=== PATIENT | female | born 1980 | race Caucasian/White ===

== ENCOUNTER 2016-11-06 09:24 | Emergency (ER) | payer OTHER ==
[~2016-11-06] VITALS: Ht 166.4 cm; Wt 61.9 kg
[~2016-11-06 09:24] MED LIST: AMOX875T PO; ASTN; VALA1TAB PO; [UNRECOGNIZED DRUG - CODE] PO
[2016-11-06 09:27] VITALS: TEMP 36.8; Ht 166.4 cm; Wt 61.9 kg
[2016-11-06] MEDS ORDERED: SODIUM CHLORIDE 0.9% 1000ML 1,000 ML IV STA (09:42)
[2016-11-06] MEDS ORDERED: METOCLOPRAMIDE HCL INJ 5 MG/ML 2 ML VIAL IV STA (09:42)
[2016-11-06 09:54] LABS: BASO % 0.4 %; BASO ABS # 0.03 K/uL (0-0.2); COMPLETE YES; EOS % 4.2 %; HEMATOCRIT 42.5 % (37-47); IG% 0.1 %; LYMPH % 27.7 %; LYMPH ABS # 1.97 K/uL (1.2-3.4); MEAN CORPUSCULAR HEMOGLOBIN 29.2 pg (25-34); MEAN CORPUSCULAR HGB CONC 33.2 g/dl (32-36); MEAN PLATELET VOLUME 12.8 fL (7.4-10.4); MONO % 8.9 %; NEUT % 58.7 %; PLATELET COUNT 186 K/uL (130-400); RED BLOOD COUNT 4.83 M/uL (4.2-5.4)
[2016-11-06 10:02] LABS: URINE APPEARANCE CLEAR (CLEAR); URINE BILIRUBIN NEG (NEG); URINE COLOR YELLOW; URINE NITRITE NEG (NEG); URINE PH 7.5 (4.5-7.5); URINE SPECIFIC GRAVITY 1.013 (1.000-1.030); UROBILINOGEN NEG (NEG)
--- NOTE | 2016-11-06 10:04 | EMERGENCY ROOM VISIT NOTE ---
History Report prepared by Lalo: April Iniguez Under the Supervision of: Dr. Parrish Charles M.D. First contact with patient: 09:29 Chief Complaint: ABDOMINAL PAIN Stated Complaint: RIGHT UPPER QUADRANT PAIN - NAUSEA - VOMITING Nursing Triage Summary: RUQ pain for a couple days, n/v. Similar pain before. History of Present Illness The patient is a 36 year old female who presents to the Emergency Room with complaints of waxing and waning RUQ abdominal pain for the past couple of days. She has had similar pain in the past and states that her doctor wanted to remove her gallbladder. The patient was at that time, so she refused the surgery. Last week her pain returned. She is also experiencing nausea and vomiting. After eating dinner last night, the patient's pain worsened and it has been constant since then. The patient rates her current pain as a 3/10 in severity. She works with a general surgeon and he recommended that she came to the ED for further evaluation. The patient denies any chance of or a retained tampon. Her LNMP was 3 weeks ago. She denies any previous abdominal surgeries. Source of History: patient Onset: a couple of days ago Position: abdomen (RUQ) Symptom Intensity: 3/10 Timing: constant, waxes/wanes Modifying Factors (Worsening): eating Associated Symptoms: + nausea, + vomiting Review of Systems See HPI for pertinent positives & negatives. A total of 10 systems reviewed and were otherwise negative. Past Medical & Surgical Medical Problems: (1) Disc displacement, lumbar (2) Other cervical disc displacement, mid-cervical region, unspecified level Family History No pertinent history stated. Social History Smoking Status: Never Smoker Marital Status: Housing Status: lives with family Occupation Status: employed Current/Historical Medications Scheduled Multivitamin (Multivitamin), 1 TAB PO QAM Omeprazole Magnesium (Prilosec Otc), 1 TAB PO DAILY Ondasetron Odt (Zofran Odt), 4 MG SL Q6H Allergies Coded Allergies: No Known Allergies (Verified , 11/06/16) Physical Exam Vital Signs Date Time Temp Pulse Resp B/P (MAP) Pulse Ox O2 Delivery O2 Flow Rate FiO2 11/06/16 11:40 57 18 114/66 97 Room Air 11/06/16 09:27 36.8 66 18 127/78 98 Room Air Physical Exam GENERAL: Patient is a healthy-appearing well-nourished 36 year old female HEAD: Normocephalic atraumatic EYES: Ocular movements intact pupils equal and react to light OROPHARYNX mucous membranes are moist no exudates present no erythema or edema present NECK: Supple no nuchal rigidity CHEST: Good equal expansion LUNGS: Clear and equal to auscultation CARDIAC: Normal S1 and S2 ABDOMEN: Soft, tender in the RUQ, no guarding BACK: No CVA tenderness EXTREMITIES: No pain upon palpation normal muscle strength in all groups no clubbing cyanosis or edema NEURO: Patient is following commands and answering questions appropriately. Alert and oriented x3 Cranial Nerves 2-12 grossly intact Medical Decision & Procedures ER Provider Diagnostic Interpretation: Radiology results as stated below per my review and radiologist interpretation: ULTRASOUND RIGHT UPPER QUADRANT ABDOMEN CLINICAL HISTORY: Right upper quadrant abdominal pain. COMPARISON STUDY: Abdominal CT dated 09/17/2006. TECHNIQUE: Real-time, grayscale, and color flow sonography of the right upper quadrant of the abdomen was performed. Images are reviewed in the transverse and longitudinal planes. FINDINGS: Liver: The liver is normal in size and echotexture. There is no intrahepatic biliary ductal dilatation. The main portal vein is patent. Gallbladder: The gallbladder is normal in appearance. No gallstones are identified. There is no gallbladder wall thickening or pericholecystic fluid. A sonographic Rangel's sign is reportedly absent. The common bile duct measures up to 0.2 cm in diameter. Pancreas: Visualized portions of the pancreatic head and body are normal in appearance. Right kidney: Survey images of the right kidney demonstrate normal size and echotexture. There is no hydronephrosis. Ascites: None. IMPRESSION: Unremarkable sonographic assessment of the right upper quadrant. No gallstones are seen. Electronically signed by: Primo Lynch M.D. 11/06/2016 11:16 AM Dictated Date/Time: 11/06/2016 11:16 AM Laboratory Results 11/06/16 09:43 Red Blood Count 4.83, Mean Corpuscular Volume 88.0, Mean Corpuscular Hemoglobin 29.2, Mean Corpuscular Hemoglobin Concent 33.2, Mean Platelet Volume 12.8, Neutrophils (%) (Auto) 58.7, Lymphocytes (%) (Auto) 27.7, Monocytes (%) (Auto) 8.9, Eosinophils (%) (Auto) 4.2, Basophils (%) (Auto) 0.4, Neutrophils # (Auto) 4.16, Lymphocytes # (Auto) 1.97, Monocytes # (Auto) 0.63, Eosinophils # (Auto) 0.30, Basophils # (Auto) 0.03 11/06/16 09:43 Test 11/06/16 09:43 11/06/16 09:54 White Blood Count 7.10 K/uL (4.8-10.8) Red Blood Count 4.83 M/uL (4.2-5.4) Hemoglobin 14.1 g/dL (12.0-16.0) Hematocrit 42.5 % (37-47) Mean Corpuscular Volume 88.0 fL (80-100) Mean Corpuscular Hemoglobin 29.2 pg (25-34) Mean Corpuscular Hemoglobin Concent 33.2 g/dl (32-36) Platelet Count 186 K/uL (130-400) Mean Platelet Volume 12.8 fL (7.4-10.4) Neutrophils (%) (Auto) 58.7 % Lymphocytes (%) (Auto) 27.7 % Monocytes (%) (Auto) 8.9 % Eosinophils (%) (Auto) 4.2 % Basophils (%) (Auto) 0.4 % Neutrophils # (Auto) 4.16 K/uL (1.4-6.5) Lymphocytes # (Auto) 1.97 K/uL (1.2-3.4) Monocytes # (Auto) 0.63 K/uL (0.11-0.59) Eosinophils # (Auto) 0.30 K/uL (0-0.5) Basophils # (Auto) 0.03 K/uL (0-0.2) RDW Standard Deviation 42.7 fL (36.4-46.3) RDW Coefficient of Variation 13.3 % (11.5-14.5) Immature Granulocyte % (Auto) 0.1 % Immature Granulocyte # (Auto) 0.01 K/uL (0.00-0.02) Anion Gap 5.0 mmol/L (3-11) Est Creatinine Clear Calc Drug Dose 86.1 ml/min Estimated GFR () 105.1 Estimated GFR (Non- 90.7 BUN/Creatinine Ratio 13.8 (10-20) Calcium Level 9.1 mg/dl (8.5-10.1) Total Bilirubin 0.5 mg/dl (0.2-1) Direct Bilirubin 0.1 mg/dl (0-0.2) Aspartate Amino Transf (AST/SGOT) 21 U/L (15-37) Alanine Aminotransferase (ALT/SGPT) 28 U/L (12-78) Alkaline Phosphatase 72 U/L (45-117) Total Protein 7.5 gm/dl (6.4-8.2) Albumin 3.9 gm/dl (3.4-5.0) Lipase 228 U/L (73-393) Urine Color YELLOW Urine Appearance CLEAR (CLEAR) Urine pH 7.5 (4.5-7.5) Urine Specific Frederic 1.013 (1.000-1.030) Urine Protein NEG (NEG) Urine Glucose (UA) NEG (NEG) Urine Ketones NEG (NEG) Urine Occult Blood NEG (NEG) Urine Nitrite NEG (NEG) Urine Bilirubin NEG (NEG) Urine Urobilinogen NEG (NEG) Urine Leukocyte Esterase NEG (NEG) Urine Test NEG (NEG) Labs reviewed by ED physician. Medications Administered Medications (Trade) Dose Ordered Sig/Payam Route Start Time Stop Time Status Last Admin Dose Admin Sodium Chloride 1,000 ml @ 999 mls/hr Q1H1M STAT IV 11/06/16 09:42 11/06/16 10:42 DC 11/06/16 09:49 999 MLS/HR Metoclopramide HCl (Reglan Inj) 10 mg NOW STAT IV 11/06/16 09:42 11/06/16 09:44 DC 11/06/16 09:49 10 MG ED Course 928: Past medical records reviewed. The patient was evaluated in room A11B. A complete history and physical examination was performed. 0942: Reglan 10 mg IV, NSS 1000 ml @ 999 mls/hr IV 1128: I discussed the patient's case with Dr. Street of general surgery. He will follow up with the patient as an outpatient. 1156: I reassessed the patient at this time. She is feeling better and resting comfortably. I discussed the results and treatment plan with the patient. I answered all pertaining questions that she had. She expressed understanding and verbalized agreement. The patient will be discharged home. Medical Decision Differential diagnosis: Etiologies such as appendicitis, diverticulitis, PUD, biliary pathology, UTI, pancreatitis, obstruction, mesenteric ischemia, aortic pathology, infections, inflammatory bowel disease, renal colic, as well as others were entertained. Medication Reconciliation: I attest that I have personally reviewed the patient' s current medication list Blood Pressure Screening: Patient was found to have normal blood pressure on screening and does not require follow up. This is a 36-year-old female that presents emergency department complaining of right upper quadrant abdominal pain. Serial abdominal examinations were performed on the patient in the emergency department and at no time did the patient exhibited a surgical abdomen. The patient was given normal saline bolus as well as nausea medication. Repeat examination revealed improvement the patient's symptoms. I do believe that the patient as well as to be discharged home on Prilosec with follow-up with her surgeon. Patient was in agreement with the treatment plan. Consults Time Called: 1128 Consulting Physician: Dr. Street Returned Call: 1128 I discussed the patient's case with Dr. Street of general surgery. He will follow up with the patient as an outpatient. Impression Primary Impression: Abdominal pain Scribe Attestation The scribe's documentation has been prepared under my direction and personally reviewed by me in its entirety. I confirm that the note above accurately reflects all work, treatment, procedures, and medical decision making performed by me. Departure Information Dispostion Home / Self-Care Prescriptions Ondasetron Odt (ZOFRAN ODT) 4 Mg Tab 4 MG SL Q6H for Nausea, #6 TAB Prov: Parrish Charles MD 11/06/16 Omeprazole Magnesium (PRILOSEC OTC) 20 Mg Tab 1 TAB PO DAILY for 30 Days, #30 TAB Prov: Parrish Charles MD 11/06/16 Referrals Arie Mckeon M.D. (PCP) Young Street D.O. Forms Call Back Authorization, HOME CARE DOCUMENTATION FORM, IMPORTANT VISIT INFORMATION Patient Instructions Abdominal Pain - [facility], ED Abdominal Pain Gallstone Poss, My [facility] Additional Instructions Follow up with Dr Street's office Take 5 ml Maalox before every meal, recommend clear liquid diet next 48 hours You have been examined and treated today on an emergency basis only. This is not a substitute for, or an effort to provide, complete comprehensive medical care. It is impossible to recognize and treat all injuries or illnesses in a single emergency department visit. It is therefore important that you follow up closely with Dr Fernandez. Call as soon as possible for an appointment. Thank you for your time and consideration. I look forward to speaking with you again soon. Please don't hesitate to call us if you have any questions. Problem Qualifiers Primary Impression: Abdominal pain Abdominal location: right upper quadrant Qualified Codes: R10.11 - Right upper quadrant pain
[2016-11-06 10:12] LABS: MANUAL MICROSCOPIC REQUIRED? NO; REVIEW REQ? NO
[2016-11-06 10:16] LABS: BUN/CREATININE RATIO 13.8 (10-20); CALCIUM 9.1 mg/dl (8.5-10.1); CREATININE 0.83 mg/dl (0.60-1.20); POTASSIUM 4.1 mmol/L (3.5-5.1)
[2016-11-06] MEDS ORDERED: MULT-506 PO (11:01)
--- NOTE | 2016-11-06 11:18 | DIAGNOSTIC IMAGING REPORT ---
ULTRASOUND RIGHT UPPER QUADRANT ABDOMEN CLINICAL HISTORY: Right upper quadrant abdominal pain. COMPARISON STUDY: Abdominal CT dated 09/17/2006. TECHNIQUE: Real-time, grayscale, and color flow sonography of the right upper quadrant of the abdomen was performed. Images are reviewed in the transverse and longitudinal planes. FINDINGS: Liver: The liver is normal in size and echotexture. There is no intrahepatic biliary ductal dilatation. The main portal vein is patent. Gallbladder: The gallbladder is normal in appearance. No gallstones are identified. There is no gallbladder wall thickening or pericholecystic fluid. A sonographic Rangel's sign is reportedly absent. The common bile duct measures up to 0.2 cm in diameter. Pancreas: Visualized portions of the pancreatic head and body are normal in appearance. Right kidney: Survey images of the right kidney demonstrate normal size and echotexture. There is no hydronephrosis. Ascites: None. IMPRESSION: Unremarkable sonographic assessment of the right upper quadrant. No gallstones are seen. Electronically signed by: Primo Lynch M.D. 11/06/2016 11:16 AM Dictated Date/Time: 11/06/2016 11:16 AM
[2016-11-06 11:40] VITALS: BP 114/66; PULSE 57; O2SAT 97
[2016-11-06] MEDS ORDERED: OMEP20TA14 PO (11:51)
[2016-11-06] MEDS ORDERED: ONDA4TAB10 SL (11:51)
== END 2016-11-06 12:05 | disposition home or self-care (01) ==
LOC: C.EDB 09:26 → C.EDA 12:05
DX: R10.11 Right upper quadrant pain (principal)

== ENCOUNTER → 2017-05-28 | Day surgery (SDC) | payer OTHER ==
[2017-05-21 13:14] VITALS: Ht 165.1 cm; Wt 60.9 kg
[~2017-05-28] VITALS: Ht 165.1 cm; Wt 60.9 kg
[~2017-05-28] MED LIST changes: -AMOX875T PO; -ASTN; +ATROPINE SULFATE 0.1 MG/ML 5ML SYR IV PRN; +BUPIVACAINE/EPINEPHRINE 0.5% MPF 1:200,000 30 ML VIAL ONE; +CEFAZOLIN 1000MG IV PUSH 7.5 ML IV SCH; +CHECK SCOPOLAMINE PATCH PLACEMENT SCH; +DEXAMETHASONE SOD INJ 4 MG/ML VIAL ONE; +EpHEDrine SULFATE INJ 50 MG/ML AMP IV PRN; +FENTANYL CITRATE INJ 50 MCG/1 ML 2 ML VIAL IV PRN; +FENTANYL CITRATE INJ 50 MCG/1 ML 2 ML VIAL ONE; +HYDR-5688 PO; +HYDROCODONE/ACETAMIN 5/325MG TAB PO PRN; +HYDROmorphone INJ 1 MG/ML SYR IV PRN; +IBUPROFEN 200 MG TAB ONE; +IBUPROFEN 600 MG TAB PO PRN; +KETOROLAC TROMETHAMINE 30 MG/ML VIAL IV. PRN; +LACTATED RINGER'S 1000ML 1,000 ML IV SCH; +LIDOCAINE HCL 2% 2 ML VIAL (20MG/ML) ONE; +MIDAZOLAM HCL 1 MG/ML 2ML VIAL ONE; +MULT-506 PO; +ONDANSETRON INJ 2 MG/ML 2 ML VIAL IV PRN; +ONDANSETRON INJ 2 MG/ML 2 ML VIAL ONE; +PROMETHAZINE HCL INJ 12.5 MG in SODIUM CHLORIDE 0.9% 50ML 50 ML IV PRN; +PROPOFOL IV EMULSION 10 MG/ML 20 ML VIAL IV ONE; +SCOPOLAMINE 1.5 MG TDSY TD ONE; +SCOPOLAMINE 1.5 MG TDSY TD SCH; +SODIUM CHLORIDE 0.9% 1000ML 1,000 ML IV SCH; -VALA1TAB PO; -[UNRECOGNIZED DRUG - CODE] PO
--- NOTE | 2017-05-28 06:56 | History & Physical Bridge Note ---
H&P Re-Evaluation Bridge Note: I have examined the patient, reviewed the History & Physical and in the interval since the performance of the History & Physical I have noted the following changes of clinical significance: No changes noted
--- NOTE | 2017-05-28 06:58 | Discharge Instructions-SurgCtr ---
Discharge Instructions Date of Service May 28, 2017. Visit Reason for Visit: Umbilical Hernia Discharge Discharge Diagnosis / Problem: umbilical hernia Discharge Goals Goal(s): Decrease discomfort, Prevent Disease Progression Activity Recommendations Activity Limitations: as noted below Lifting Limitations: no more than 10 pounds Exercise/Sports Limitations: until after follow-up appointment May Resume Sexual Activity: after follow-up appointment Shower/Bathe: tomorrow Anesthesia . Post Anesthesia Instructions: If you have had General Anesthesia or IV Sedation: * Do not drive today. * Resume driving when surgeon permits. * Do not make important decisions or sign legal documents today. * Call surgeon for: 1. Temperature elevations greater than 101 degrees F. 2. Uncontrollable pain. 3. Excessive bleeding. 4. Persistent nausea and vomiting. 5. Medication intolerance (nausea, vomiting or rash). * For nausea and vomiting use only clear liquids such as: tea, soda, bouillon until nausea subsides, then gradually increase diet as tolerated. * If you have any concerns or questions, call your surgeon's office. If physician is unavailable and it is an emergency, call 911 or go to the nearest emergency room. . Diet Recommendations Home Diet: resume previous diet Pending Studies Studies pending at discharge: no Medical Emergencies . Who to Call and When: Medical Emergencies: If at any time you feel your situation is an emergency, please call 911 immediately. . Non-Emergent Contact Non-Emergency issues call your: Primary Care Provider, Surgeon Call Non-Emergent contact if: temperature is above 101, wound has increased drainage, wound has increased redness, wound has increased pain . . "Provider Documentation" section prepared by Young Street. .
--- NOTE | 2017-05-28 07:45 | [facility] Post Operative Brief Note ---
Immediate Operative Summary Operative Date May 28, 2017. Pre-Operative Diagnosis Umbilical Hernia Post-Operative Diagnosis Same Procedure(s) Performed Open Umbilical Hernia Repair Surgeon Dr. Street Adjuster Piano Action Surgeon(s) None Estimated Blood Loss 3 cc Findings Consistent with Post-Op Diagnosis Specimens None Anesthesia Type General
--- NOTE | 2017-05-28 08:08 | [facility] Operative Report ---
Operative Report Operative Date May 28, 2017. Pre-Operative Diagnosis Umbilical Hernia Post-Operative Diagnosis Same Procedure(s) Performed Open Umbilical Hernia Repair Surgeon Dr. Street Director Of Leadership Development Surgeon(s) None Estimated Blood Loss 3 cc Specimens None Anesthesia Type General Description of Procedure After informed consent was obtained the patient was taken the operating room placed in supine position. After successful placement of the laryngeal mask airway the abdomen was sterilely prepped and draped in usual fashion. A curvilinear infraumbilical incision was made with a 15 blade scalpel and carried down through the soft tissues electrocautery. Once we were down to the fascia I was able to use a Deirdre clamp to come around the superior aspect of the umbilicus. I then detached the umbilical stalk using electrocautery exposing an approximately 1 cm umbilical hernia with omental incarceration. I was able to free up the omentum and dunk it back into the abdominal cavity. I then used 0 Ethibond in [id number] fashion to primarily close the defect. Because of the small size of the defect I opted not to use mesh. I then thoroughly irrigated the wound. I replaced the umbilical stalk using 0 Vicryl. I then closed the deep layers using 3-0 Vicryl and skin was closed using 4-0 Monocryl. Marcaine was injected around it for postoperative analgesia and skin glue used as a dressing. The patient was awaken extubated and transferred to recovery in stable condition. I attest to the content of the Intraoperative Record and any orders documented therein. Any exceptions are noted below.
[2017-05-28 08:39] VITALS: TEMP 37.3
[2017-05-28 09:05] VITALS: BP 117/52; PULSE 75; O2SAT 97
--- NOTE | 2017-05-28 09:09 | Anesthesia Progress Nt - [facility] ---
Anesthesia Post Op Note Date & Time May 28, 2017 at 09:08 Vital Signs Pain Intensity: 2.0 Vital Signs Past 12 Hours Date Time Temp Pulse Resp B/P (MAP) Pulse Ox O2 Delivery O2 Flow Rate FiO2 05/28/17 09:05 75 16 117/52 (73) 97 Room Air 05/28/17 08:39 37.3 75 18 107/69 (82) 98 Room Air 05/28/17 08:34 79 17 99 05/28/17 08:34 77 17 05/28/17 08:31 119/61 05/28/17 08:29 80 17 05/28/17 08:29 79 17 99 05/28/17 08:27 37.3 87 16 119/61 98 Room Air 05/28/17 08:26 116/63 05/28/17 08:24 78 16 99 05/28/17 08:24 79 16 05/28/17 08:21 129/68 05/28/17 08:19 88 20 05/28/17 08:19 104 20 05/28/17 08:16 120/69 05/28/17 08:14 82 15 100 05/28/17 08:14 82 15 05/28/17 08:11 119/66 05/28/17 08:09 90 23 05/28/17 08:09 97 23 97 05/28/17 08:06 127/69 05/28/17 08:04 94 21 05/28/17 08:04 98 21 93 05/28/17 08:01 126/71 05/28/17 07:59 87 100 05/28/17 07:59 90 05/28/17 07:56 118/86 05/28/17 07:54 100 124/67 100 05/28/17 07:54 36.8 104 16 124/67 100 Mask 6 05/28/17 07:54 100 05/28/17 06:32 36.9 83 16 120/55 (76) 96 Room Air Notes Mental Status: alert / awake / arousable, participated in evaluation Pt Amnestic to Procedure: Yes Nausea / Vomiting: adequately controlled Pain: adequately controlled Airway Patency, RR, SpO2: stable & adequate BP & HR: stable & adequate Hydration State: stable & adequate Anesthetic Complications: no major complications apparent
== END | disposition home or self-care (01) ==
LOC: X.SURG 06:22
PROVIDERS: ATTEND Surgery
DX: K42.9 Umbilical hernia without obstruction or gangrene (principal); Z98.890 Other specified postprocedural states; Z90.89 Acquired absence of other organs; Z80.0 Family history of malignant neoplasm of digestive organs; Z83.3 Family history of diabetes mellitus; Z82.49 Family history of ischemic heart disease and other diseases of the circulatory system